=== PATIENT | female | born 1930 | race Caucasian/White ===

== ENCOUNTER 2016-12-09 17:02 | Emergency (ER) | payer MEDICARE, BC ==
[2016-12-09] MEDS ORDERED: Sodium Chloride 0.9% 10 ML Syringe FLUSH PRN (17:30)
[2016-12-09] MEDS ORDERED: Sodium Chloride 0.9% 2.5 ML Syringe FLUSH PRN (17:30)
--- NOTE | 2016-12-09 17:32 | EDM.PDOC ---
ED HISTORY OF PRESENT ILLNESS - General Chief Complaint: Cardiovascular Problem Stated Complaint: HEART COMPLICATIONS Time Seen by Provider: 12/09/16 17:16 - History of Present Illness INITIAL COMMENTS - FREE TEXT/NARRATIVE: HISTORY AND PHYSICAL: History of present illness: The patient is an 86-year-old female who follows at [facility] and has a history of aortic mechanical valve replacement, factor X, hypertension, atrial fibrillation and presents with vague complaints of not feeling like herself, feeling "empty in her head" and having episodic leg paresthesias without weakness. She states that these symptoms started on November 26 after returning from a trip to [place] and has been ongoing since that time. She denies any chest pain or shortness of breath she's had no headaches neck or back pain no frequency or urgency no vomiting or diarrhea and has had normal bowel movements. She's eating and drinking normally and states she drinks at least 6 cups of coffee a day, not as much water. The patient states she's been feeling lightheaded, it has been episodic and she had a fall prior to November 26 but not since that time. She was seen by her provider at [facility], Dr. Anders, who stopped her digoxin 2 days ago and her verapamil one day ago because he felt that her heart rate was significantly affected by these meds. She has a known history of warfarin use, Jantoven, 1 mg per day 6 days a week and half a milligram on Thursday it keeps her INR proximally 1.9-2.1. She had labs performed at [facility] on , 5 days ago, which she was told were normal except that her INR was 2.4. She's had no bleeding in her stools no blood in her urine and no bleeding gums. She says she also had an ultrasound performed on her abdomen to evaluate her AAA which is stable at 3 cm and that was performed 5 days ago as well. Patient is a nontobacco user but says she has cut back significantly from one pack a day to only 5 cigarettes a day because she just doesn't have the desire to smoke. She says she can't really describe her symptoms other than the numbness in the legs and feeling drained lightheaded and empty in her head. She presents today because she doesn't feel like anything is changed and wants reevaluation. The patient does state me that she has been on several different antihypertensive meds and a nurse practitioner at [facility] had stated to her before she went trip that she might have to come off of her blood pressure medicine because her blood pressure was running low. She states that every 2 years she has problems with her blood pressure medications as she is very sensitive and she says it usually feels like the way she is feeling now. This particular history was not addressed by her provider on her last visit Review of systems: As per history of present illness and below otherwise all systems reviewed and negative. Past medical history: As per history of present illness and as reviewed below otherwise noncontributory. Surgical history: As per history of present illness and as reviewed below otherwise noncontributory. Social history: No reported history of drug or alcohol abuse. Family history: As per history of present illness and as reviewed below otherwise noncontributory. Physical exam: General: Well-developed well-nourished thin female who is nontoxic and whose vitals have been reviewed by me. She moves easily in the bed without distress HEENT: Atraumatic, normocephalic, pupils reactive, negative for conjunctival pallor or scleral icterus, mucous membranes tacky, throat clear, neck supple, nontender, trachea midline. Lungs: Clear to auscultation with a course fine expiratory wheeze at end expiration in the bases bilaterally but otherwise no work or breathing or sensory muscle use, breath sounds equal bilaterally, chest nontender. Heart: S1S2, regular rate but your regular rhythm, negative for clicks, rubs, or JVD. Abdomen: Soft, nondistended, nontender. Negative for masses or hepatosplenomegaly. Negative for costovertebral tenderness. Pelvis: Stable nontender. Genitourinary: Deferred. Rectal: Deferred. Extremities: Atraumatic, negative for cords or calf pain. Neurovascular unremarkable. No pedal edema or leg asymmetry Neuro: Awake, alert, oriented. Cranial nerves II through XII unremarkable. Cerebellum unremarkable. Motor and sensory unremarkable throughout. Exam nonfocal. There is no drift any extremities the patient is speaking clearly and easily without distress. Dorsi and plantar flexion is intact bilaterally 5/5 inclusive of the great toe and there are no focal changes in any of this exam Diagnostics: EKG chest x-ray CT scan of the head CBC CMP INR troponin UA urine culture if indicated orthostatic vitals Therapeutics: IV O2 monitor gentle IV fluids Please note that her systolic blood pressure from laying down to sitting did drop more than 20 there is no change in heart rate and then from sitting to standing there was no significant change. Her blood pressure was running on the higher side and this change may be what she is feeling symptomatically. I discussed the testing results with the patient and at bedside at great length. I expressed my concerns about her elevated blood pressure and the changes with position change. I have offered the patient admission to help manage her blood pressure but because she has been working with Dr. Anders she does not want to have a new physician start changing her meds. She understands my concerns and the risk of going home and she accepts those. She will call [facility] tomorrow to follow up with Dr. Anders and have her medications reevaluated and her blood pressure management better controlled. I've advised her to call here and speak with me if she cannot get an appointment there tomorrow and to return here if anything changes or evolves. Impression: Hypertension with poor control, lightheadedness Definitive disposition and diagnosis as appropriate pending reevaluation and review of above. - Related Data Allergies/ADRs: Allergies Allergy/AdvReac Type Severity Reaction Status Date / Time LEVI Inhibitors Allergy Other Verified 12/09/16 17:32 amitriptyline Allergy Cannot Verified 03/03/15 10:59 Remember aspirin Allergy Swelling Verified 03/03/15 10:59 atorvastatin calcium Allergy Cannot Verified 03/03/15 10:59 [From Lipitor] Remember bupropion [From Wellbutrin] Allergy Other Verified 12/09/16 17:32 chlorthalidone Allergy Cannot Verified 03/03/15 10:59 Remember diazepam [From Valium] Allergy Other Verified 12/09/16 17:32 diltiazem [From Cardizem] Allergy Other Verified 12/09/16 17:32 latex Allergy Other Verified 03/03/15 10:59 lisinopril Allergy Other Verified 12/09/16 17:32 losartan Allergy Other Verified 12/09/16 17:32 meclofenamic acid Allergy Cannot Verified 03/03/15 10:59 Remember mold Allergy Other Verified 12/09/16 17:32 nebivolol [From Bystolic] Allergy Other Verified 12/09/16 17:32 niacin Allergy Rash Verified 03/03/15 10:59 nortriptyline Allergy Other Verified 03/03/15 10:59 NSAIDS (Non-Steroidal Allergy Other Verified 12/09/16 17:32 Anti-Inflamma pregabalin [From Lyrica] Allergy Cannot Verified 03/03/15 10:59 Remember strawberry Allergy Other Verified 12/09/16 17:32 vitamin K Allergy Anaphylactic Uncoded 03/03/15 10:59 Shock Home Meds: Home Meds Budesonide/Formoterol [Symbicort 160-4.5 Mcg Inhaler] 2 puff INH BID 03/03/15 [ History] Doxazosin Mesylate [Cardura] 2 mg PO DAILY 03/03/15 [History] Estradiol 0.5 mg PO DAILY 03/03/15 [History] Furosemide 40 mg PO DAILY 03/03/15 [History] Nitroglycerin 6.5 mg PO BID 03/03/15 [History] Irene-3 Fatty Acids [Irene-3] 1,000 mg PO DAILY 03/03/15 [History] Potassium Chloride 10 meq PO BID 03/03/15 [History] Verapamil HCl [Verelan] 240 mg PO BEDTIME 03/03/15 [History] Warfarin Sodium [Jantoven] 1 mg PO DAILY 03/03/15 [History] Digoxin 250 mcg PO DAILY 12/09/16 [History] Digoxin [Digox] 125 mcg PO SUTUTHSA 12/09/16 [History] Ergocalciferol (Vitamin D2) [Vitamin D] 1,000 units PO DAILY 12/09/16 [History] Hydrocodone/Acetaminophen [Hydrocodon-Acetaminophn 10-325] 1 tab PO Q4H [History] Valsartan [Diovan] 320 mg PO DAILY 12/09/16 [History] Past Medical History Other Musculoskeletal History: Degenerative disc disease, hip pain, myofascial pain syndrome, spondylolithesis of lumbar region Other Hematologic History: Factor 10 disorder Social & Family History - Tobacco Use Smoking Status *Q: Current Every Day Smoker Years of Tobacco use: 30 Second Hand Smoke Exposure: No - Recreational Drug Use Recreational Drug Use: No ED ROS GENERAL - Review of Systems Review Of Systems: ROS reveals no pertinent complaints other than HPI. ED EXAM, GENERAL - Physical Exam Exam: See Below (See dictation) Course - Vital Signs Last Recorded V/S: Last Vital Signs Temp 36.9 C 12/09/16 17:23 Pulse 57 L 12/09/16 17:23 Resp 16 12/09/16 17:23 BP 209/92 H 12/09/16 17:23 Pulse Ox 97 12/09/16 17:23 Orthostatic Blood Pressure [ 191/80 Standing] Orthostatic Blood Pressure [ 174/83 Sitting] Orthostatic Blood Pressure [ 203/78 Supine] - Orders/Labs/Meds Orders: Active Orders 24 hr Category Date Time Status Cardiac Monitoring [RC] . DIRECTED Care 12/09/16 17:28 Active EKG Documentation Completion [RC] STAT Care 12/09/16 17:28 Active Orthostatic Vital Signs [RC] ASDIRECTED Care 12/09/16 17:30 Active Oxygen Therapy, ED [RC] ASDIRECTED Care 12/09/16 17:28 Active Pulse Oximetry [RC] ASDIRECTED Care 12/09/16 17:28 Active Chest 1V Frontal [CR] Stat Exams 12/09/16 17:29 Taken Head wo Cont [CT] Stat Exams 12/09/16 17:30 Taken Sodium Chloride 0.9% [Normal Saline] 500 ml Med 12/09/16 17:45 Active IV STAT Sodium Chloride 0.9% [Saline Flush] Med 12/09/16 17:30 Active 10 ml FLUSH ASDIRECTED PRN Sodium Chloride 0.9% [Saline Flush] Med 12/09/16 17:30 Active 2.5 ml FLUSH ASDIRECTED PRN Saline Lock Insert [OM.PC] Stat Oth 12/09/16 17:28 Ordered Medication Orders Sodium Chloride (Normal Saline) 500 mls @ 999 mls/hr IV STAT JILLIAN Last Admin: 12/09/16 17:41 Dose: 999 mls/hr Sodium Chloride (Saline Flush) 10 ml FLUSH ASDIRECTED PRN PRN Reason: Keep Vein Open Sodium Chloride (Saline Flush) 2.5 ml FLUSH ASDIRECTED PRN PRN Reason: Keep Vein Open Labs: Laboratory Tests 12/09/16 12/09/16 12/09/16 Range/Units 17:25 17:25 17:25 WBC 6.80 (4.0-11.0) K/uL RBC 4.34 (4.30-5.90) M/uL Hgb 13.4 (12.0-16.0) g/dL Hct 40.8 (36.0-46.0) % MCV 94.0 (80.0-98.0) fL MCH 30.9 (27.0-32.0) pg MCHC 32.8 (31.0-37.0) g/dL RDW Std Deviation 47.2 (28.0-62.0) fl RDW Coeff of Vy 14 (11.0-15.0) % Plt Count 156 (150-400) K/uL MPV 10.00 (7.40-12.00) fL Neut % (Auto) 61.2 (48.0-80.0) % Lymph % (Auto) 29.1 (16.0-40.0) % [place] % (Auto) 7.4 (0.0-15.0) % Eos % (Auto) 1.9 (0.0-7.0) % Baso % (Auto) 0.4 (0.0-1.5) % Neut # 4.2 (1.4-5.7) K/uL Lymph # 2.0 (0.6-2.4) K/uL [place] # 0.5 (0.0-0.8) K/uL Eos # 0.1 (0.0-0.7) K/uL Baso # 0.0 (0.0-0.1) K/uL Nucleated RBC % 0.0 /100WBC Nucleated RBCs # 0 K/uL INR 2.53 H (0.86-1.11) Sodium 139 (136-146) mmol/L Potassium 4.0 (3.5-5.1) mmol/L Chloride 105 (98-110) mmol/L Carbon Dioxide 24 (21-31) mmol/L BUN 14 (6.0-23.0) mg/dL Creatinine 0.8 (0.6-1.5) mg/dL Est Cr Clr Drug Dosing 41.40 mL/min Estimated GFR (MDRD) > 60.0 ml/min Glucose 91 (60-110) mg/dL Calcium 9.1 (8.8-10.8) mg/dL Total Bilirubin 0.4 (0.1-1.5) mg/dL AST 23 (5-40) IU/L ALT 14 (8-54) IU/L Alkaline Phosphatase 57 (40-150) Troponin I (0.0-0.29) NG/ML Total Protein 7.1 (6.0-8.0) g/dL Albumin 4.0 (3.4-4.8) g/dL Globulin 3.1 (2.0-3.5) g/dL Albumin/Globulin Ratio 1.3 (1.3-2.8) Urine Color Urine Appearance Urine pH (5.0-8.0) Ur Specific [place] (1.001-1.035) Urine Protein (NEGATIVE) mg/dL Urine Glucose (UA) (NEGATIVE) mg/dL Urine Ketones (NEGATIVE) mg/dL Urine Occult Blood (NEGATIVE) Urine Nitrite (NEGATIVE) Urine Bilirubin (NEGATIVE) Urine Urobilinogen (<2.0) EU/dL Ur Leukocyte Esterase (NEGATIVE) Urine RBC (0-2/HPF) Urine WBC (0-5/HPF) Ur Epithelial Cells (NONE-FEW) Urine Bacteria (NEGATIVE) 12/09/16 12/09/16 Range/Units 17:25 17:55 WBC (4.0-11.0) K/uL RBC (4.30-5.90) M/uL Hgb (12.0-16.0) g/dL Hct (36.0-46.0) % MCV (80.0-98.0) fL MCH (27.0-32.0) pg MCHC (31.0-37.0) g/dL RDW Std Deviation (28.0-62.0) fl RDW Coeff of Vy (11.0-15.0) % Plt Count (150-400) K/uL MPV (7.40-12.00) fL Neut % (Auto) (48.0-80.0) % Lymph % (Auto) (16.0-40.0) % [place] % (Auto) (0.0-15.0) % Eos % (Auto) (0.0-7.0) % Baso % (Auto) (0.0-1.5) % Neut # (1.4-5.7) K/uL Lymph # (0.6-2.4) K/uL [place] # (0.0-0.8) K/uL Eos # (0.0-0.7) K/uL Baso # (0.0-0.1) K/uL Nucleated RBC % /100WBC Nucleated RBCs # K/uL INR (0.86-1.11) Sodium (136-146) mmol/L Potassium (3.5-5.1) mmol/L Chloride (98-110) mmol/L Carbon Dioxide (21-31) mmol/L BUN (6.0-23.0) mg/dL Creatinine (0.6-1.5) mg/dL Est Cr Clr Drug Dosing mL/min Estimated GFR (MDRD) ml/min Glucose (60-110) mg/dL Calcium (8.8-10.8) mg/dL Total Bilirubin (0.1-1.5) mg/dL AST (5-40) IU/L ALT (8-54) IU/L Alkaline Phosphatase (40-150) Troponin I < 0.10 (0.0-0.29) NG/ML Total Protein (6.0-8.0) g/dL Albumin (3.4-4.8) g/dL Globulin (2.0-3.5) g/dL Albumin/Globulin Ratio (1.3-2.8) Urine Color YELLOW Urine Appearance CLEAR Urine pH 7.0 (5.0-8.0) Ur Specific [place] <= 1.005 (1.001-1.035) Urine Protein NEGATIVE (NEGATIVE) mg/dL Urine Glucose (UA) NEGATIVE (NEGATIVE) mg/dL Urine Ketones NEGATIVE (NEGATIVE) mg/dL Urine Occult Blood NEGATIVE (NEGATIVE) Urine Nitrite NEGATIVE (NEGATIVE) Urine Bilirubin NEGATIVE (NEGATIVE) Urine Urobilinogen 0.2 (<2.0) EU/dL Ur Leukocyte Esterase NEGATIVE (NEGATIVE) Urine RBC 0-1 (0-2/HPF) Urine WBC 0-1 (0-5/HPF) Ur Epithelial Cells FEW (NONE-FEW) Urine Bacteria FEW (NEGATIVE) Meds: Medications Generic Name Dose Route Start Last Admin Trade Name Freq PRN Reason Stop Dose Admin Sodium Chloride 500 mls @ 999 mls/hr 12/09/16 17:45 12/09/16 17:41 Normal Saline IV 999 mls/hr STAT JILLIAN Administration Sodium Chloride 10 ml 12/09/16 17:30 Saline Flush FLUSH ASDIRECTED PRN Keep Vein Open Sodium Chloride 2.5 ml 12/09/16 17:30 Saline Flush FLUSH ASDIRECTED PRN Keep Vein Open Departure - Departure Time of Disposition: 19:04 Disposition: Home, Self-Care 01 Condition: good Clinical Impression: Poorly-controlled hypertension Forms: ED Department Discharge Additional Instructions: The following information is given to patients seen in the emergency department who are being discharged to home. This information is to outline your options for follow-up care. We provide all patients seen in our emergency department with a follow-up referral. The need for follow-up, as well as the timing and circumstances, are variable depending upon the specifics of your emergency department visit. If you don't have a primary care physician on staff, we will provide you with a referral. We always advise you to contact your personal physician following an emergency department visit to inform them of the circumstance of the visit and for follow-up with them and/or the need for any referrals to a consulting specialist. The emergency department will also refer you to a specialist when appropriate. This referral assures that you have the opportunity for followup care with a specialist. All of these measure are taken in an effort to provide you with optimal care, which includes your followup. Under all circumstances we always encourage you to contact your private physician who remains a resource for coordinating your care. When calling for followup care, please make the office aware that this follow-up is from your recent emergency room visit. If for any reason you are refused follow-up, please contact the [facility] emergency department at and ask to speak to the emergency department charge nurse. [address] [place] [address] Please call [facility] tomorrow to get an appointment with Dr. Anders as we discussed. If you have any trouble getting an appointment with him please call the ER at [phone] with Dr. Spicer who will expedite getting an appointment. Please take your medications as prescribed at home but please hold her Coumadin dose tonight. Please have Dr. Anders recheck your INR tomorrow or . Please return to ER as needed and as we discussed - My Orders Last 24 Hours: My Active Orders 12/09/16 17:28 Cardiac Monitoring [RC] . DIRECTED EKG Documentation Completion [RC] STAT Oxygen Therapy, ED [RC] ASDIRECTED Pulse Oximetry [RC] ASDIRECTED Saline Lock Insert [OM.PC] Stat 12/09/16 17:29 Chest 1V Frontal [CR] Stat 12/09/16 17:30 Orthostatic Vital Signs [RC] ASDIRECTED Head wo Cont [CT] Stat Sodium Chloride 0.9% [Saline Flush] 10 ml FLUSH ASDIRECTED PRN Sodium Chloride 0.9% [Saline Flush] 2.5 ml FLUSH ASDIRECTED PRN 12/09/16 17:45 Sodium Chloride 0.9% [Normal Saline] 500 ml IV STAT - Assessment/Plan Last 24 Hours: My Active Orders 12/09/16 17:28 Cardiac Monitoring [RC] . DIRECTED EKG Documentation Completion [RC] STAT Oxygen Therapy, ED [RC] ASDIRECTED Pulse Oximetry [RC] ASDIRECTED Saline Lock Insert [OM.PC] Stat 12/09/16 17:29 Chest 1V Frontal [CR] Stat 12/09/16 17:30 Orthostatic Vital Signs [RC] ASDIRECTED Head wo Cont [CT] Stat Sodium Chloride 0.9% [Saline Flush] 10 ml FLUSH ASDIRECTED PRN Sodium Chloride 0.9% [Saline Flush] 2.5 ml FLUSH ASDIRECTED PRN 12/09/16 17:45 Sodium Chloride 0.9% [Normal Saline] 500 ml IV STAT
[2016-12-09] MEDS ORDERED: Sodium Chloride 0.9% 500 ML IV SCH (17:45)
[2016-12-09 18:06] LABS: CHLORIDE,CL 105 mmol/L (98-110); SODIUM,NA 139 mmol/L (136-146)
[2016-12-09 19:27] VITALS: BP 180/90
--- NOTE | 2016-12-10 14:43 | CR ---
EXAM DATE: 12/09/16 PATIENT'S AGE: 86 Patient: RODGER DURANT Facility: [place], [place] Site . Site : 1932 Study: XRay Chest [id number]/21/2017 6:10:44 PM Ordering Physician: Nayan Del Rosario Final Report: INDICATION: Dizziness and weakness TECHNIQUE: Chest 1 view. COMPARISON: None FINDINGS: Cardiovascular and mediastinum: Heart size and vasculature are normal in caliber and appearance. Sternotomy wires noted. Mediastinum is within normal limits. Lungs and pleural space: Lungs are clear. No sign of infiltrate or mass. No sign of pleural effusion. No pneumothorax. Bones and soft tissues: No significant findings. IMPRESSION: Unremarkable chest. Dictated by Wilmer Jones MD @ 12/09/2016 6:37:01 PM Dictated by: Wilmer Jones MD @ 12/09/2016 18:37:06 (Electronic Signature) Report Signed by Proxy and Original Signed Document filed in the Medical Record. [facility]TDD
--- NOTE | 2016-12-10 14:43 | CT ---
EXAM DATE: 12/09/16 PATIENT'S AGE: 86 Patient: RODGER DURANT Facility: [place], [place] Site . Site : 1932 Study: CT Head [id number]/21/[id number] 6:11:42 PM Ordering Physician: Nayan Del Rosario Final Report: INDICATION: weakness, blurred vision, dizziness TECHNIQUE: CT Head without contrast. COMPARISON: 10/12/2014. FINDINGS: There is no sign of intracranial hemorrhage or mass effect. Stable diffuse cerebral atrophy. Stable nonspecific low-attenuation along the periventricular white matter, most likely related to chronic microvascular disease. Stable nonspecific calcification within the right parietal lobe. The estevez-white differentiation is preserved. No abnormal intra-axial or extra-axial fluid collection. No acute disease of the visualized paranasal sinuses and mastoid air cells. No fracture evident. No scalp hematoma/laceration. IMPRESSION: No acute intracranial process. Dictated by: Juan Cook MD @ 12/09/2016 18:41:54 (Electronic Signature) Report Signed by Proxy and Original Signed Document filed in the Medical Record. [facility]
== END 2016-12-09 19:15 | disposition home or self-care (01) ==
LOC: MW.ED 17:02
DX: I10 Essential (primary) hypertension (principal); F17.210 Nicotine dependence, cigarettes, uncomplicated; Z79.01 Long term (current) use of anticoagulants; Z79.899 Other long term (current) drug therapy; Z88.8 Allergy status to other drugs, medicaments and biological substances
CPT/HCPCS: 36415; 70450; 71010; 80053; 81001; 84484; 85025; 85610; 93005; 96360; 99285; J7040; 99284

== ENCOUNTER → 2017-01-29 | Outpatient (CLI) | payer MEDICARE, BC ==
--- NOTE | 2017-01-29 15:11 | US ---
EXAMINATION: Renal artery and renal artery duplex ultrasound HISTORY: Heart failure COMPARISON: None TECHNIQUE: Grayscale, color Doppler, spectral Doppler images obtained of the kidneys and the renal a rteries bilaterally. FINDINGS: The right kidney measures at least 11.1 cm and the left kidney measures at least 9.1 cm [id number] without evidence hydronephrosis. The renal cortical echotexture appears normal. No renal mass or pe rinephric fluid collection or no shadowing stones. Normal color Doppler flow bilaterally. The aorta is moderately ectatic up to 3.9 cm. Velocities within the aorta measures 88 cm/s. The proximal, mid, and distal right renal artery veloc ities are 130, 79, and 59 cm/s respectively. Velocities within the proximal, mid, and distal left re nal arteries are 162, 112, and 57 cm/s respectively. The heart rate is irregular. IMPRESSION: 1. No elevated velocities within the renal arteries to suggest significant underlying stenosis. 2. Abdominal aortic aneurysm measuring up to 3.9 cm. 3. Irregular heart rate.
--- NOTE | 2017-01-29 15:11 | US ---
EXAMINATION: Renal artery and renal artery duplex ultrasound HISTORY: Heart failure COMPARISON: None TECHNIQUE: Grayscale, color Doppler, spectral Doppler images obtained of the kidneys and the renal a rteries bilaterally. FINDINGS: The right kidney measures at least 11.1 cm and the left kidney measures at least 9.1 cm [id number] without evidence hydronephrosis. The renal cortical echotexture appears normal. No renal mass or pe rinephric fluid collection or no shadowing stones. Normal color Doppler flow bilaterally. The aorta is moderately ectatic up to 3.9 cm. Velocities within the aorta measures 88 cm/s. The proximal, mid, and distal right renal artery veloc ities are 130, 79, and 59 cm/s respectively. Velocities within the proximal, mid, and distal left re nal arteries are 162, 112, and 57 cm/s respectively. The heart rate is irregular. IMPRESSION: 1. No elevated velocities within the renal arteries to suggest significant underlying stenosis. 2. Abdominal aortic aneurysm measuring up to 3.9 cm. 3. Irregular heart rate.
== END ==
LOC: MW.US 10:23
PROVIDERS: ATTEND Internal Medicine
DX: I50.9 Heart failure, unspecified (principal); I71.4 Abdominal aortic aneurysm, without rupture; I49.9 Cardiac arrhythmia, unspecified
CPT/HCPCS: 76775; 76775-26; 93975; 93975-26

== ENCOUNTER 2017-03-07 17:50 | Observation (INO) | payer MEDICARE, BC ==
[2017-03-07] MEDS ORDERED: Aspirin 81 MG Tab.Chew PO ONE (18:00)
[2017-03-07] MEDS ORDERED: Sodium Chloride 0.9% 1,000 ML IV SCH (18:00)
[2017-03-07] MEDS ORDERED: Albuterol/Ipratropium 3.0-0.5 MG/3 ML Neb Soln NEB ONE (18:02)
--- NOTE | 2017-03-07 18:02 | EDM.PDOC ---
ED HPI GENERAL MEDICAL PROBLEM - General Chief Complaint: Chest Pain Stated Complaint: DIFFICULTY BREATHING Time Seen by Provider: 03/07/17 18:01 Source of Information: Reports: Patient - History of Present Illness INITIAL COMMENTS - FREE TEXT/NARRATIVE: HISTORY AND PHYSICAL: History of present illness: [] Patient presents by private vehicle as above Patient has history of COPD and aortic valve replacement presents with chest heaviness and shortness of breath not associated with diaphoresis she rates heaviness on her chest 3 out of 10 she is in no distress at this time no fever nausea vomiting chills sweats Review of systems: As per history of present illness and below otherwise all systems reviewed and negative. Past medical history: As per history of present illness and as reviewed below otherwise noncontributory. Surgical history: As per history of present illness and as reviewed below otherwise noncontributory. Social history: No reported history of drug or alcohol abuse. Family history: As per history of present illness and as reviewed below otherwise noncontributory. Physical exam: HEENT: Atraumatic, normocephalic, pupils reactive, negative for conjunctival pallor or scleral icterus, mucous membranes moist, throat clear, neck supple, nontender, trachea midline. Lungs: Clear to auscultation, breath sounds equal bilaterally, chest nontender. Heart: S1S2, regular, negative for clicks, rubs, or JVD. Abdomen: Soft, nondistended, nontender. Negative for masses or hepatosplenomegaly. Negative for costovertebral tenderness. Pelvis: Stable nontender. Genitourinary: Deferred. Rectal: Deferred. Extremities: Atraumatic, negative for cords or calf pain. Neurovascular unremarkable. Neuro: Awake, alert, oriented. Cranial nerves II through XII unremarkable. Cerebellum unremarkable. Motor and sensory unremarkable throughout. Exam nonfocal. Diagnostics: []Lab as below EKG Chest 1 view Therapeutics: []Normal saline 1 25 mL per hour Aspirin 324 mg chewable, considered but held due to allergy ntg 0.4mg sl Impression: []Atypical chest pain COPD exacerbation Chronic history of baseline Definitive disposition and diagnosis as appropriate pending reevaluation and review of above. chest area Pain Score (Numeric/FACES): 5 - Related Data Allergies Allergy/AdvReac Type Severity Reaction Status Date / Time LEVI Inhibitors Allergy Other Verified 03/07/17 18:01 amitriptyline Allergy Cannot Verified 03/07/17 18:01 Remember aspirin Allergy Swelling Verified 03/07/17 18:01 atorvastatin calcium Allergy Cannot Verified 03/07/17 18:01 [From Lipitor] Remember bupropion [From Wellbutrin] Allergy Other Verified 03/07/17 18:01 chlorthalidone Allergy Cannot Verified 03/07/17 18:01 Remember diazepam [From Valium] Allergy Other Verified 03/07/17 18:01 diltiazem [From Cardizem] Allergy Other Verified 03/07/17 18:01 latex Allergy Other Verified 03/07/17 18:01 lisinopril Allergy Other Verified 03/07/17 18:01 losartan Allergy Other Verified 03/07/17 18:01 meclofenamic acid Allergy Cannot Verified 03/07/17 18:01 Remember mold Allergy Other Verified 03/07/17 18:01 nebivolol [From Bystolic] Allergy Other Verified 03/07/17 18:01 niacin Allergy Rash Verified 03/07/17 18:01 nortriptyline Allergy Other Verified 03/07/17 18:01 NSAIDS (Non-Steroidal Allergy Other Verified 03/07/17 18:01 Anti-Inflamma pregabalin [From Lyrica] Allergy Cannot Verified 03/07/17 18:01 Remember strawberry Allergy Other Verified 03/07/17 18:01 vitamin K Allergy Anaphylactic Uncoded 03/07/17 18:01 Shock Home Meds: Home Meds Budesonide/Formoterol [Symbicort 160-4.5 Mcg Inhaler] 2 puff INH BID 03/03/15 [ History] Doxazosin Mesylate [Cardura] 8 mg PO DAILY 03/03/15 [History] Estradiol 0.5 mg PO DAILY 03/03/15 [History] Furosemide 40 mg PO DAILY 03/03/15 [History] Nitroglycerin 6.5 mg PO BID 03/03/15 [History] [place]-3 Fatty Acids [[place]-3] 1,000 mg PO DAILY 03/03/15 [History] Potassium Chloride 10 meq PO BID 03/03/15 [History] Verapamil HCl [Verelan] 240 mg PO BEDTIME 03/03/15 [History] Warfarin Sodium [Jantoven] 1 mg PO DAILY 03/03/15 [History] Digoxin 250 mcg PO DAILY 12/09/16 [History] Ergocalciferol (Vitamin D2) [Vitamin D] 1,000 units PO DAILY 12/09/16 [History] Hydrocodone/Acetaminophen [Hydrocodon-Acetaminophn 10-325] 1 tab PO Q4H [History] Valsartan [Diovan] 320 mg PO DAILY 12/09/16 [History] Fexofenadine [Malina] 180 mg PO DAILY 03/07/17 [History] hydrALAZINE [Apresoline] 10 mg PO TID 03/07/17 [History] Past Medical History Cardiovascular History: Reports: Afib, Aneurysm, Heart Valve Replacement, Hypertension, Other (See Below) Other Cardiovascular History: AAA Respiratory History: Reports: Asthma Other Musculoskeletal History: Degenerative disc disease, hip pain, myofascial pain syndrome, 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 ED EXAM, GENERAL - Physical Exam Exam: See Below Course - Vital Signs Last Recorded V/S: Last Vital Signs Temp 36.5 C 03/07/17 18:01 Pulse 76 03/07/17 18:01 Resp 18 03/07/17 18:01 BP 189/99 H 03/07/17 18:21 Pulse Ox 97 03/07/17 18:01 - Orders/Labs/Meds Orders: Active Orders 24 hr Category Date Time Status EKG 12 Lead [EKG Documentation Completion] [RC] STAT Care 03/07/17 18:00 Active RT Aerosol Therapy [RC] ASDIRECTED Care 03/07/17 18:02 Active Chest 1V Frontal [CR] Stat Exams 03/07/17 18:00 Taken Sodium Chloride 0.9% [Normal Saline] 1,000 ml Med 03/07/17 18:00 Active IV STAT Medication Orders Sodium Chloride (Normal Saline) 1,000 mls @ 125 mls/hr IV STAT JILLIAN Last Admin: 03/07/17 18:16 Dose: 125 mls/hr Labs: Laboratory Tests 03/07/17 03/07/17 03/07/17 Range/Units 18:00 18:00 18:00 WBC 7.04 (4.0-11.0) K/uL RBC 4.23 L (4.30-5.90) M/uL Hgb 13.4 (12.0-16.0) g/dL Hct 40.3 (36.0-46.0) % MCV 95.3 (80.0-98.0) fL MCH 31.7 (27.0-32.0) pg MCHC 33.3 (31.0-37.0) g/dL RDW Std Deviation 49.3 (28.0-62.0) fl RDW Coeff of Vy 14 (11.0-15.0) % Plt Count 164 (150-400) K/uL MPV 10.00 (7.40-12.00) fL Neut % (Auto) 55.5 (48.0-80.0) % Lymph % (Auto) 31.8 (16.0-40.0) % [place] % (Auto) 9.5 (0.0-15.0) % Eos % (Auto) 2.8 (0.0-7.0) % Baso % (Auto) 0.4 (0.0-1.5) % Neut # (Auto) 3.9 (1.4-5.7) K/uL Lymph # (Auto) 2.2 (0.6-2.4) K/uL [place] # (Auto) 0.7 (0.0-0.8) K/uL Eos # (Auto) 0.2 (0.0-0.7) K/uL Baso # (Auto) 0.0 (0.0-0.1) K/uL Nucleated RBC % 0.0 /100WBC Nucleated RBCs # 0 K/uL INR (0.86-1.11) Sodium 138 (136-146) mmol/L Potassium 4.0 (3.5-5.1) mmol/L Chloride 104 (98-110) mmol/L Carbon Dioxide 24 (21-31) mmol/L BUN 14 (6.0-23.0) mg/dL Creatinine 0.9 (0.6-1.5) mg/dL Est Cr Clr Drug Dosing 36.80 mL/min Estimated GFR (MDRD) 59.7 ml/min Glucose 94 (60-110) mg/dL Calcium 9.0 (8.8-10.8) mg/dL Total Bilirubin 0.3 (0.1-1.5) mg/dL AST 16 (5-40) IU/L ALT 12 (8-54) IU/L Alkaline Phosphatase 59 (40-150) Troponin I < 0.10 (0.0-0.29) NG/ML B-Natriuretic Peptide (<100) PG/ML Total Protein 7.1 (6.0-8.0) g/dL Albumin 4.2 (3.4-4.8) g/dL Globulin 2.9 (2.0-3.5) g/dL Albumin/Globulin Ratio 1.4 (1.3-2.8) 03/07/17 03/07/17 Range/Units 18:00 18:00 WBC (4.0-11.0) K/uL RBC (4.30-5.90) M/uL Hgb (12.0-16.0) g/dL Hct (36.0-46.0) % MCV (80.0-98.0) fL MCH (27.0-32.0) pg MCHC (31.0-37.0) g/dL RDW Std Deviation (28.0-62.0) fl RDW Coeff of Vy (11.0-15.0) % Plt Count (150-400) K/uL MPV (7.40-12.00) fL Neut % (Auto) (48.0-80.0) % Lymph % (Auto) (16.0-40.0) % [place] % (Auto) (0.0-15.0) % Eos % (Auto) (0.0-7.0) % Baso % (Auto) (0.0-1.5) % Neut # (Auto) (1.4-5.7) K/uL Lymph # (Auto) (0.6-2.4) K/uL [place] # (Auto) (0.0-0.8) K/uL Eos # (Auto) (0.0-0.7) K/uL Baso # (Auto) (0.0-0.1) K/uL Nucleated RBC % /100WBC Nucleated RBCs # K/uL INR 2.34 H (0.86-1.11) Sodium (136-146) mmol/L Potassium (3.5-5.1) mmol/L Chloride (98-110) mmol/L Carbon Dioxide (21-31) mmol/L BUN (6.0-23.0) mg/dL Creatinine (0.6-1.5) mg/dL Est Cr Clr Drug Dosing mL/min Estimated GFR (MDRD) ml/min Glucose (60-110) mg/dL Calcium (8.8-10.8) mg/dL Total Bilirubin (0.1-1.5) mg/dL AST (5-40) IU/L ALT (8-54) IU/L Alkaline Phosphatase (40-150) Troponin I (0.0-0.29) NG/ML B-Natriuretic Peptide 249 H (<100) PG/ML Total Protein (6.0-8.0) g/dL Albumin (3.4-4.8) g/dL Globulin (2.0-3.5) g/dL Albumin/Globulin Ratio (1.3-2.8) Meds: Medications Generic Name Dose Route Start Last Admin Trade Name Freq PRN Reason Stop Dose Admin Sodium Chloride 1,000 mls @ 125 mls/hr 03/07/17 18:00 03/07/17 18:16 Normal Saline IV 125 mls/hr STAT JILLIAN Administration Discontinued Medications Generic Name Dose Route Start Last Admin Trade Name Freq PRN Reason Stop Dose Admin Albuterol/Ipratropium 3 ml 03/07/17 18:02 03/07/17 18:20 Duoneb 3.0-0.5 Mg/3 Ml NEB 03/07/17 18:03 3 ml ONETIME ONE Administration Aspirin 324 mg 03/07/17 18:00 03/07/17 18:11 Aspirin PO 03/07/17 18:01 Not Given ONETIME ONE Methylprednisolone Sodium Succinate 125 mg 03/07/17 18:05 03/07/17 18:16 Solu-Medrol IVPUSH 03/07/17 18:06 125 mg ONETIME ONE Administration Nitroglycerin 0.4 mg 03/07/17 18:09 03/07/17 18:21 Nitrostat SL 03/07/17 18:10 0.4 mg ONETIME ONE Administration Departure - Departure Time of Disposition: 18:42 Disposition: Admitted As Inpatient 68 Condition: Fair, Poor Clinical Impression: Atypical chest pain, COPD (chronic obstructive pulmonary disease) - Discharge Information Forms: ED Department Discharge - My Orders Last 24 Hours: My Active Orders 03/07/17 18:00 EKG 12 Lead [EKG Documentation Completion] [RC] STAT Chest 1V Frontal [CR] Stat Sodium Chloride 0.9% [Normal Saline] 1,000 ml IV STAT 03/07/17 18:02 RT Aerosol Therapy [RC] ASDIRECTED - Assessment/Plan Last 24 Hours: My Active Orders 03/07/17 18:00 EKG 12 Lead [EKG Documentation Completion] [RC] STAT Chest 1V Frontal [CR] Stat Sodium Chloride 0.9% [Normal Saline] 1,000 ml IV STAT 03/07/17 18:02 RT Aerosol Therapy [RC] ASDIRECTED
[2017-03-07] MEDS ORDERED: methylPREDNISolone Sodium Succinate 125 MG/2 ML SDV IVPUSH ONE (18:05)
[2017-03-07] MEDS ORDERED: Nitroglycerin 0.4 MG Tab.SL SL ONE (18:09)
[2017-03-07] MEDS ORDERED: cloNIDine 0.1 MG Tab PO ONE (20:38)
[2017-03-07] MEDS ORDERED: Albuterol/Ipratropium 3.0-0.5 MG/3 ML Neb Soln NEB PRN (20:38)
[2017-03-07] MEDS ORDERED: Morphine 2 MG/ML Syringe IVPUSH PRN (20:38)
[2017-03-07] MEDS ORDERED: Verapamil 240 MG Tab.ER PO SCH (22:16)
--- NOTE | 2017-03-07 22:44 | PCM.HP ---
H&P History of Present Illness - General Admit Problem/Dx: Admission Diagnosis/Problem Admission Diagnosis/Problem Atypical chest pain - History of Present Illness Initial Comments - Free Text/Narative: 86 yo female with pmh of CHF, and valvular disease who reports generalized weakness and fatigue for a year. She reports mild chest pressure and shortness of breath today. chest area Pain Score (Numeric/FACES): 2 - Related Data Allergies/Adverse Reactions: Allergies Allergy/AdvReac Type Severity Reaction Status Date / Time LEVI Inhibitors Allergy Other Verified 03/07/17 18:01 amitriptyline Allergy Cannot Verified 03/07/17 18:01 Remember aspirin Allergy Swelling Verified 03/07/17 18:01 atorvastatin calcium Allergy Cannot Verified 03/07/17 18:01 [From Lipitor] Remember bupropion [From Wellbutrin] Allergy Other Verified 03/07/17 18:01 chlorthalidone Allergy Cannot Verified 03/07/17 18:01 Remember diazepam [From Valium] Allergy Other Verified 03/07/17 18:01 diltiazem [From Cardizem] Allergy Other Verified 03/07/17 18:01 latex Allergy Other Verified 03/07/17 18:01 lisinopril Allergy Other Verified 03/07/17 18:01 losartan Allergy Other Verified 03/07/17 18:01 meclofenamic acid Allergy Cannot Verified 03/07/17 18:01 Remember mold Allergy Other Verified 03/07/17 18:01 nebivolol [From Bystolic] Allergy Other Verified 03/07/17 18:01 niacin Allergy Rash Verified 03/07/17 18:01 nortriptyline Allergy Other Verified 03/07/17 18:01 NSAIDS (Non-Steroidal Allergy Other Verified 03/07/17 18:01 Anti-Inflamma pregabalin [From Lyrica] Allergy Cannot Verified 03/07/17 18:01 Remember strawberry Allergy Other Verified 03/07/17 18:01 vitamin K Allergy Anaphylactic Uncoded 03/07/17 18:01 Shock Home Medications: Home Meds Budesonide/Formoterol [Symbicort 160-4.5 Mcg Inhaler] 2 puff INH BID 03/03/15 [ History] Doxazosin Mesylate [Cardura] 8 mg PO DAILY 03/03/15 [History] Estradiol 0.5 mg PO DAILY 03/03/15 [History] Furosemide 40 mg PO DAILY 03/03/15 [History] Nitroglycerin 6.5 mg PO BID 03/03/15 [History] [place]-3 Fatty Acids [[place]-3] 1,000 mg PO DAILY 03/03/15 [History] Potassium Chloride 10 meq PO BID 03/03/15 [History] Verapamil HCl [Verelan] 240 mg PO BEDTIME 03/03/15 [History] Warfarin Sodium [Jantoven] 1 mg PO DAILY 03/03/15 [History] Digoxin 250 mcg PO DAILY 12/09/16 [History] Ergocalciferol (Vitamin D2) [Vitamin D] 1,000 units PO DAILY 12/09/16 [History] Hydrocodone/Acetaminophen [Hydrocodon-Acetaminophn 10-325] 1 tab PO Q4H [History] Valsartan [Diovan] 320 mg PO DAILY 12/09/16 [History] Fexofenadine [Malina] 180 mg PO DAILY 03/07/17 [History] Hydrocodone/Acetaminophen [Hydrocodon-Acetaminophn 10-325] 10 mg PO Q4HR PRN [History] Meclizine [Antivert] 25 mg PO TID PRN MDD pain 03/07/17 [History] hydrALAZINE [Apresoline] 25 mg PO TID 03/07/17 [History] Past Medical History Cardiovascular History: Reports: Afib, Aneurysm, Heart Valve Replacement, Hypertension, Other (See Below) Other Cardiovascular History: AAA Respiratory History: Reports: Asthma Other Respiratory History: COPD impression from previous visit Gastrointestinal History: Reports: Other (See Below) Other Gastrointestinal History: Abdominal Aneurysm Genitourinary History: Reports: None [employer]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 Musculoskeletal History: Degenerative disc disease, hip pain, myofascial pain syndrome, spondylolithesis of lumbar region Neurological History: Reports: None Psychiatric History: Reports: None Endocrine/Metabolic History: Reports: None Hematologic History: Reports: Other (See Below) Other Hematologic History: Factor 10 disorder Immunologic History: Reports: None Oncologic (Cancer) History: Reports: None Dermatologic History: Reports: None - Infectious Disease History Infectious Disease History: Reports: Chicken Pox, Measles, Mumps, Shingles - Past Surgical History Female Surgical History: Reports: Hysterectomy Social & Family History - Family History Family Medical History: Noncontributory - Tobacco Use Smoking Status *Q: Current Every Day Smoker Years of Tobacco use: 40 Packs/Tins Daily: 1 Used Tobacco, but Quit: No Second Hand Smoke Exposure: No - Caffeine Use Caffeine Use: Reports: Coffee - Recreational Drug Use Recreational Drug Use: No H&P Review of Systems - Review of Systems: Review Of Systems: ROS reveals no pertinent complaints other than HPI. Exam - Exam Exam: See Below - Vital Signs Vital Signs: Last Vital Signs Temp 36.4 C 03/07/17 19:26 Pulse 68 03/07/17 20:08 Resp 16 03/07/17 20:08 BP 167/74 H 03/07/17 20:57 Pulse Ox 97 03/07/17 20:08 Weight: 50.6 kg - Exam General: Alert, Oriented, 4 Neck: No: JVD Lungs: Clear to Auscultation, Normal Respiratory Effort Cardiovascular: Regular Rate, Regular Rhythm, Systolic Murmur Extremities: Normal Inspection. No: Edema Skin: Warm, Dry, Intact - Patient Data Result Diagrams: 03/07/17 18:00 03/07/17 18:00 *Q Meaningful Use (ADM) - VTE *Q VTE Criteria *Q: - Stroke *Q Stroke Criteria *Q: - AMI *Q AMI Criteria *Q: Problem List Initiated/Reviewed/Updated: Yes Orders Last 24hrs: Active Orders 24 hr Category Date Time Status RT Aerosol Therapy [RC] ASDIRECTED Care 03/07/17 20:38 Active Telemetry Monitoring [Cardiac Monitoring] [RC] . Care 03/07/17 20:40 Active DIRECTED Heart Healthy Diet [DIET] Diet 03/07/17 Dinner Active TROPONIN I [CHEM] Q6H Lab 03/08/17 00:00 Ordered TROPONIN I [CHEM] Q6H Lab 03/08/17 06:00 Ordered Albuterol/Ipratropium [DuoNeb 3.0-0.5 MG/3 ML] Med 03/07/17 20:38 Active 3 ml NEB Q6HRRT PRN Budesonide/Formoterol Med 03/08/17 09:00 Active 2 puff INH BID Digoxin [Lanoxin] Med 03/08/17 09:00 Active 250 mcg PO DAILY Doxazosin [Cardura] Med 03/08/17 09:00 Active 8 mg PO DAILY Furosemide [Lasix] Med 03/08/17 09:00 Active 40 mg PO DAILY Morphine Med 03/07/17 20:38 Active 2 mg IVPUSH Q2H PRN Potassium Chloride [Klor-Con 10] Med 03/08/17 08:00 Active 10 meq PO BIDMEALS Valsartan [Diovan] Med 03/08/17 09:00 Active 320 mg PO DAILY Verapamil [Calan SR] Med 03/07/17 22:16 Active 240 mg PO BEDTIME Warfarin Sliding Scale [Coumadin Sliding Scale] Med 03/08/17 09:00 Pending DOSE each PO DAILY hydrALAZINE [Apresoline] Med 03/07/17 23:00 Active 10 mg PO TID Medication Orders Albuterol/Ipratropium (Duoneb 3.0-0.5 Mg/3 Ml) 3 ml NEB Q6HRRT PRN PRN Reason: Shortness of Breath Digoxin (Lanoxin) 250 mcg PO DAILY JILLIAN Doxazosin Mesylate (Cardura) 8 mg PO DAILY JILLIAN Furosemide (Lasix) 40 mg PO DAILY JILLIAN Hydralazine HCl (Apresoline) 10 mg PO TID JILLIAN Sodium Chloride (Normal Saline) 1,000 mls @ 125 mls/hr IV STAT JILLIAN Last Admin: 03/07/17 18:16 Dose: 125 mls/hr Morphine Sulfate (Morphine) 2 mg IVPUSH Q2H PRN PRN Reason: Pain Non-Formulary Medication (Budesonide/Formoterol) 2 puff INH BID JILLIAN Potassium Chloride (Klor-Con 10) 10 meq PO BIDMEALS JILLIAN Valsartan (Diovan) 320 mg PO DAILY JILLIAN Verapamil HCl (Calan Sr) 240 mg PO BEDTIME JILLIAN Warfarin Sodium (Coumadin Sliding Scale) each PO DAILY [facility] Assessment/Plan Comment:: 86 yo female who presents with chest pain. She was rule out for acute coronary syndrome with serial negative cardiac enyzmes. She was monitored overnight with no events on telemetry and no reoccurrence of chest pressure. She was discharged home and will follow up with Dr. Beth and Dr. Ibrahim.
[2017-03-07] MEDS ORDERED: hydrALAZINE 10 MG Tab PO SCH ×2 (23:00)
[2017-03-07] MEDS ORDERED: hydrALAZINE 25 MG Tab**PTOM PO SCH (23:17)
[2017-03-08] MEDS: HYDROCODONE PO PRN ×2 (00:12→05:22)
[2017-03-08] MEDS: ACETAMINOPHEN PO PRN ×2 (00:12→05:22)
[2017-03-08] MEDS ORDERED: Sodium Chloride 0.9% 2.5 ML Syringe FLUSH PRN (02:32)
[2017-03-08] MEDS ORDERED: Sodium Chloride 0.9% 10 ML Syringe FLUSH PRN (02:32)
[2017-03-08] MEDS ORDERED: hydrALAZINE 10 MG Tab PO SCH (06:00)
[2017-03-08] MEDS ORDERED: Potassium Chloride 10 MEQ Tab.ER PO SCH (08:00)
[2017-03-08 08:29] VITALS: BP 132/45
[2017-03-08] MEDS ORDERED: Furosemide 40 MG Tab PO SCH (09:00)
[2017-03-08] MEDS ORDERED: Digoxin 250 MCG Tab PO SCH (09:00)
[2017-03-08] MEDS ORDERED: Non-Formulary Medication 1 Each (Budesonide/Formoterol 2 PUFF) INH SCH (09:00)
[2017-03-08] MEDS ORDERED: Doxazosin 2 MG Tab PO SCH (09:00)
[2017-03-08] MEDS ORDERED: Warfarin Sliding Scale PO SCH (14:00)
[2017-03-08] MEDS ORDERED: Verapamil 240 MG Tab.ER PO SCH (21:00)
--- NOTE | 2017-03-09 13:04 | CR ---
EXAM DATE: 03/07/17 PATIENT'S AGE: 86 Patient: RODGER DURANT Facility: [place], [place] Site . Site : [id number] Study: XRay Chest [id number] 6:28:22 PM Ordering Physician: Doctor William Final Report: Indication: Pain. Comparison: PA chest 12/09/2016. Findings: Allowing for differences in technique, cardiac mediastinal silhouettes are stable in appearance. Again are changes of a median sternotomy. The lungs are free of infiltrate. The pulmonary vasculature is normal. Impression: No active cardiopulmonary disease on portable chest. Dictated by Valentina Florence MD @ Mar 07 2017 6:44PM (Electronic Signature) Report Signed by Proxy. ALVAREZ
== END 2017-03-08 09:45 | disposition home or self-care (01) ==
LOC: MW.ED 17:50 → MW.MS 18:43
PROVIDERS: ADMIT Internal Medicine; ATTEND Internal Medicine
DX: R07.89 Other chest pain (principal); R53.1 Weakness; R53.83 Other fatigue; I48.91 Unspecified atrial fibrillation; I10 Essential (primary) hypertension; J44.9 Chronic obstructive pulmonary disease, unspecified; R06.02 Shortness of breath; M19.90 Unspecified osteoarthritis, unspecified site; F17.210 Nicotine dependence, cigarettes, uncomplicated; Z88.6 Allergy status to analgesic agent; Z88.8 Allergy status to other drugs, medicaments and biological substances; Z91.018 Allergy to other foods; Z91.048 Other nonmedicinal substance allergy status; Z79.51 Long term (current) use of inhaled steroids; Z79.01 Long term (current) use of anticoagulants; Z79.891 Long term (current) use of opiate analgesic; Z79.899 Other long term (current) drug therapy; Z95.2 Presence of prosthetic heart valve; Z90.710 Acquired absence of both cervix and uterus
CPT/HCPCS: 36415; 71010; 80053; 83880; 84484; 85025; 85610; 93005; 94664; 96361; 96374; 99285; A9270; G0378; J2930; J7040; 99284

== ENCOUNTER 2018-10-26 17:37 | Emergency (ER) | payer MEDICARE, BC ==
--- NOTE | 2018-10-26 18:22 | EDM.PDOC ---
ED HPI GENERAL MEDICAL PROBLEM - General Chief Complaint: Genitourinary Problem Stated Complaint: PAIN IN LEGS, DIZZY Time Seen by Provider: 10/26/18 17:47 Source of Information: Reports: Patient History Limitations: Reports: No Limitations - History of Present Illness INITIAL COMMENTS - FREE TEXT/NARRATIVE: Presents to the emergency room reporting dizziness, tired, dry mouth, headache, nausea and a "prickly feeling" on her legs. The patient states that she had an ulcer on her left lu which was treated with clindamycin for 10 days. That has since mostly healed but she developed a vaginal yeast infection from the antibiotic one week ago. She broke out from that. Since, she has had flashes of heat down my body" and then today developed recurrent symptoms. - Related Data Allergies Allergy/AdvReac Type Severity Reaction Status Date / Time LEVI Inhibitors Allergy Other Verified 10/26/18 17:57 amitriptyline Allergy Cannot Verified 10/26/18 17:57 Remember aspirin Allergy Swelling Verified 10/26/18 17:57 atorvastatin calcium Allergy Cannot Verified 10/26/18 17:57 [From Lipitor] Remember bupropion [From Wellbutrin] Allergy Other Verified 10/26/18 17:57 chlorthalidone Allergy Cannot Verified 10/26/18 17:57 Remember diazepam [From Valium] Allergy Other Verified 10/26/18 17:57 diltiazem [From Cardizem] Allergy Other Verified 10/26/18 17:57 latex Allergy Other Verified 10/26/18 17:57 lisinopril Allergy Other Verified 10/26/18 17:57 losartan Allergy Other Verified 10/26/18 17:57 meclofenamic acid Allergy Cannot Verified 10/26/18 17:57 Remember mold Allergy Other Verified 10/26/18 17:57 nebivolol [From Bystolic] Allergy Other Verified 10/26/18 17:57 niacin Allergy Rash Verified 10/26/18 17:57 nortriptyline Allergy Other Verified 10/26/18 17:57 NSAIDS (Non-Steroidal Allergy Other Verified 10/26/18 17:57 Anti-Inflamma pregabalin [From Lyrica] Allergy Cannot Verified 10/26/18 17:57 Remember strawberry Allergy Other Verified 10/26/18 17:57 vitamin K Allergy Anaphylactic Uncoded 03/07/17 18:01 Shock Home Meds: Home Meds Budesonide/Formoterol [Symbicort 160-4.5 Mcg Inhaler] 2 puff INH BID 03/03/15 [ History] Estradiol 0.5 mg PO DAILY 03/03/15 [History] Furosemide 40 mg PO DAILY 03/03/15 [History] Nitroglycerin 6.5 mg PO BID 03/03/15 [History] Potassium Chloride 10 meq PO BID 03/03/15 [History] Verapamil HCl [Verelan] 240 mg PO BEDTIME 03/03/15 [History] Warfarin Sodium [Jantoven] 1 mg PO DAILY 03/03/15 [History] Digoxin 125 mcg PO DAILY 12/09/16 [History] Hydrocodone/Acetaminophen [Hydrocodon-Acetaminophn 10-325] 10 mg PO Q4HR PRN [History] Fish Oil/[place]-3 Fatty Acids [Fish Oil 1,000 MG] 1,000 mg PO DAILY 10/26/18 [ History] predniSONE [Prednisone] 2 tab PO DAILY #10 tablet 10/26/18 [Rx] Past Medical History Cardiovascular History: Reports: Afib, High Cholesterol, Hypertension Other Cardiovascular History: AAA Respiratory History: Reports: Asthma Other Respiratory History: COPD impression from previous visit Gastrointestinal History: Reports: Other (See Below) Other Gastrointestinal History: Abdominal Aneurysm Genitourinary History: Reports: None [employer]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 Musculoskeletal History: Degenerative disc disease, hip pain, myofascial pain syndrome, spondylolithesis of lumbar region Neurological History: Reports: None Psychiatric History: Reports: None Endocrine/Metabolic History: Reports: None Hematologic History: Reports: Other (See Below) Other Hematologic History: Factor 10 disorder Immunologic History: Reports: None Oncologic (Cancer) History: Reports: None Dermatologic History: Reports: None - Infectious Disease History Infectious Disease History: Reports: Chicken Pox, Measles, Mumps - Past Surgical History Female Surgical History: Reports: Hysterectomy Social & Family History - Family History Family Medical History: Noncontributory - Tobacco Use Smoking Status *Q: Current Every Day Smoker Years of Tobacco use: 60 Packs/Tins Daily: 0.3 - Caffeine Use Caffeine Use: Reports: Coffee - Recreational Drug Use Recreational Drug Use: No ED ROS GENERAL - Review of Systems Review Of Systems: ROS reveals no pertinent complaints other than HPI. ED EXAM, DIZZINESS - Physical Exam Exam: See Below Exam Limited By: No Limitations General Appearance: Alert, No Apparent Distress Ears: Normal External Exam, Normal TMs Nose: Normal Inspection Throat/Mouth: Normal Inspection, Normal Oropharynx Head Exam: Atraumatic, Normocephalic Neck: Normal Inspection Respiratory/Chest: No Respiratory Distress, Rhonchi (Scattered) Cardiovascular: Normal Peripheral Pulses, Regular Rate, Rhythm, Systolic Murmur GI/Abdominal: Soft, Non-Tender, No Distention Neurological: Alert, Normal Mood/Affect, No Motor/Sensory Deficits, Oriented x 3 Back Exam: Normal Inspection Extremities: Normal Inspection, Normal Range of Motion Psychiatric: Normal Affect, Normal Mood Skin Exam: Warm, Dry, Intact, Normal Color, Other (While the ischemic dermatitis shins bilateral. Scabbed dry and granulating wound left lu) Course - Vital Signs Last Recorded V/S: Last Vital Signs Temp 36.5 C 10/26/18 20:27 Pulse 85 10/26/18 20:27 Resp 18 10/26/18 20:27 BP 174/63 H 10/26/18 20:27 Pulse Ox 94 L 10/26/18 20:27 - Orders/Labs/Meds Orders: Active Orders 24 hr Category Date Time Status EKG Documentation Completion [RC] STAT Care 10/26/18 18:01 Active Labs: Laboratory Tests 10/26/18 10/26/18 Range/Units 18:30 18:30 WBC 8.06 (4.0-11.0) K/uL RBC 4.41 (4.30-5.90) M/uL Hgb 14.1 (12.0-16.0) g/dL Hct 41.2 (36.0-46.0) % MCV 93.4 (80.0-98.0) fL MCH 32.0 (27.0-32.0) pg MCHC 34.2 (31.0-37.0) g/dL RDW Std Deviation 44.0 (28.0-62.0) fl RDW Coeff of Vy 13 (11.0-15.0) % Plt Count 171 (150-400) K/uL MPV 10.50 (7.40-12.00) fL Neut % (Auto) 67.6 (48.0-80.0) % Lymph % (Auto) 22.8 (16.0-40.0) % [place] % (Auto) 7.1 (0.0-15.0) % Eos % (Auto) 2.1 (0.0-7.0) % Baso % (Auto) 0.4 (0.0-1.5) % Neut # (Auto) 5.5 (1.4-5.7) K/uL Lymph # (Auto) 1.8 (0.6-2.4) K/uL [place] # (Auto) 0.6 (0.0-0.8) K/uL Eos # (Auto) 0.2 (0.0-0.7) K/uL Baso # (Auto) 0.0 (0.0-0.1) K/uL Nucleated RBC % 0.0 /100WBC Nucleated RBCs # 0 K/uL Sodium 135 L (136-145) mmol/L Potassium 5.0 (3.5-5.1) mmol/L Chloride 99 (98-107) mmol/L Carbon Dioxide 28.7 (21.0-32.0) mmol/L BUN 30 H (7.0-18.0) mg/dL Creatinine 1.4 H (0.6-1.0) mg/dL Est Cr Clr Drug Dosing TNP Estimated GFR (MDRD) 35.7 ml/min Glucose 87 (74-106) mg/dL Calcium 10.2 H (8.5-10.1) mg/dL Total Bilirubin 0.4 (0.2-1.0) mg/dL AST 17 (15-37) IU/L ALT 16 (14-63) IU/L Alkaline Phosphatase 65 (46-116) U/L Troponin I < 0.050 (0.000-0.056) ng/mL C-Reactive Protein 1.20 H (0.00-0.90) mg/dL Total Protein 7.8 (6.4-8.2) g/dL Albumin 3.9 (3.4-5.0) g/dL Globulin 3.9 (2.6-4.0) g/dL Albumin/Globulin Ratio 1.0 (0.9-1.6) - Re-Assessments/Exams Free Text/Narrative Re-Assessment/Exam: 10/26/18 20:35 Patient states that her kidney function has been a little borderline for some time. Departure - Departure Time of Disposition: 20:37 Disposition: Home, Self-Care 01 Condition: Good Clinical Impression: Inflammation Drug reaction Qualifiers: Encounter type: initial encounter Qualified Code(s): T50.905A - Adverse effect of unspecified drugs, medicaments and biological substances, initial encounter - Discharge Information Referrals: Stephen Anders MD [Primary Care Provider] - Juan Carlos Ibrahim MD [Physician] - Forms: ED Department Discharge Additional Instructions: 1. Prednisone daily next 4 days 2. Follow up with Dr. Engel 3. Drink plenty of clear fluids - My Orders Last 24 Hours: My Active Orders 10/26/18 18:01 EKG Documentation Completion [RC] STAT - Assessment/Plan Last 24 Hours: My Active Orders 10/26/18 18:01 EKG Documentation Completion [RC] STAT
[2018-10-26 19:19] LABS: CHLORIDE,CL 99 mmol/L (98-107); SODIUM,NA 135 mmol/L (136-145)
[2018-10-26] MEDS ORDERED: predniSONE 20 MG Tab PO ONE (20:36)
[2018-10-26 20:41] VITALS: BP 166/79
== END 2018-10-26 20:49 | disposition home or self-care (01) ==
LOC: MW.ED 17:37
DX: L27.1 Localized skin eruption due to drugs and medicaments taken internally (principal); R42 Dizziness and giddiness; T36.8X5A Adverse effect of other systemic antibiotics, initial encounter; I10 Essential (primary) hypertension; I48.91 Unspecified atrial fibrillation; F17.210 Nicotine dependence, cigarettes, uncomplicated; Z90.710 Acquired absence of both cervix and uterus; Z88.6 Allergy status to analgesic agent; Z88.8 Allergy status to other drugs, medicaments and biological substances; Z91.040 Latex allergy status; Z91.018 Allergy to other foods; Z79.01 Long term (current) use of anticoagulants; Z79.899 Other long term (current) drug therapy
CPT/HCPCS: 36415; 80053; 84484; 85025; 86140; 93005; 99284; A9270

== ENCOUNTER 2020-02-03 08:54 | Emergency (ER) | payer MEDICARE, BC ==
[2020-02-03] MEDS ORDERED: Sodium Chloride 0.9% 1,000 ML IV ONE (09:10)
--- NOTE | 2020-02-03 09:21 | EDM.PDOC ---
ED HPI GENERAL MEDICAL PROBLEM - General Chief Complaint: General Stated Complaint: AMBULANCE Time Seen by Provider: 02/03/20 09:20 Source of Information: Reports: Patient History Limitations: Reports: No Limitations - History of Present Illness INITIAL COMMENTS - FREE TEXT/NARRATIVE: This 89-year-old female presents the emergency room with chief complaint of feeling weak and tingly all over. States that her INR is off because she been sipping on tonic water. Patient denies chest pain or shortness of breath or any falls. Reported that her INR is 4.9. Onset: Today Duration: Hour(s):, Getting Worse Location: Reports: Head, Face, Abdomen, Back Quality: Reports: Other (States she feels tingly all over) Severity: Moderate Improves with: Reports: None Worsens with: Reports: None Associated Symptoms: Reports: No Other Symptoms, Weakness - Related Data Allergies Allergy/AdvReac Type Severity Reaction Status Date / Time LEVI Inhibitors Allergy Other Verified 02/03/20 09:14 amitriptyline Allergy Cannot Verified 02/03/20 09:14 Remember aspirin Allergy Swelling Verified 02/03/20 09:14 atorvastatin calcium Allergy Cannot Verified 02/03/20 09:14 [From Lipitor] Remember bupropion [From Wellbutrin] Allergy Other Verified 02/03/20 09:14 chlorthalidone Allergy Cannot Verified 02/03/20 09:14 Remember diazepam [From Valium] Allergy Other Verified 02/03/20 09:14 diltiazem [From Cardizem] Allergy Other Verified 02/03/20 09:14 latex Allergy Other Verified 02/03/20 09:14 lisinopril Allergy Other Verified 02/03/20 09:14 losartan Allergy Other Verified 02/03/20 09:14 meclofenamic acid Allergy Cannot Verified 02/03/20 09:14 Remember mold Allergy Other Verified 02/03/20 09:14 nebivolol [From Bystolic] Allergy Other Verified 02/03/20 09:14 niacin Allergy Rash Verified 02/03/20 09:14 nortriptyline Allergy Other Verified 02/03/20 09:14 NSAIDS (Non-Steroidal Allergy Other Verified 02/03/20 09:14 Anti-Inflamma pregabalin [From Lyrica] Allergy Cannot Verified 02/03/20 09:14 Remember strawberry Allergy Other Verified 02/03/20 09:14 vitamin K Allergy Anaphylactic Uncoded 03/07/17 18:01 Shock Home Meds: Home Meds Budesonide/Formoterol [Symbicort 160-4.5 MCG] 1 puff INH ASDIRECTED 02/03/20 [ History] Digoxin 0.5 tab PO ASDIRECTED 02/03/20 [History] Furosemide 20 mg PO BID 02/03/20 [History] Losartan Potassium 50 mg PO ACBREAKFAST 02/03/20 [History] Montelukast Sodium 10 mg PO BEDTIME 02/03/20 [History] Nitroglycerin [Nitro-Time] 6.5 mg PO BID 02/03/20 [History] Potassium Chloride 10 mg PO BID 02/03/20 [History] cloNIDine HCL [Clonidine HCl] 0.3 mg PO BEDTIME 02/03/20 [History] estradioL [Estradiol] 0.5 mg PO ASDIRECTED 02/03/20 [History] Past Medical History Cardiovascular History: Reports: Afib, High Cholesterol, Hypertension Other Cardiovascular History: AAA Respiratory History: Reports: Asthma Other Respiratory History: COPD impression from previous visit Gastrointestinal History: Reports: Other (See Below) Other Gastrointestinal History: Abdominal Aneurysm Genitourinary History: Reports: None [employer]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 Musculoskeletal History: Degenerative disc disease, hip pain, myofascial pain syndrome, spondylolithesis of lumbar region Neurological History: Reports: None Psychiatric History: Reports: None Endocrine/Metabolic History: Reports: None Hematologic History: Reports: Other (See Below) Other Hematologic History: Factor 10 disorder Immunologic History: Reports: None Oncologic (Cancer) History: Reports: None Dermatologic History: Reports: None - Infectious Disease History Infectious Disease History: Reports: Chicken Pox, Measles, Mumps - Past Surgical History Female Surgical History: Reports: Hysterectomy Social & Family History - Family History Family Medical History: Noncontributory - Caffeine Use Caffeine Use: Reports: Coffee ED ROS GENERAL - Review of Systems Review Of Systems: See Below Constitutional: Reports: Malaise HEENT: Reports: No Symptoms Respiratory: Reports: No Symptoms Cardiovascular: Reports: No Symptoms Endocrine: Reports: No Symptoms GI/Abdominal: Reports: No Symptoms : Reports: No Symptoms Musculoskeletal: Reports: No Symptoms Skin: Reports: No Symptoms Neurological: Reports: Tingling Psychiatric: Reports: No Symptoms Hematologic/Lymphatic: Reports: No Symptoms Immunologic: Reports: No Symptoms ED EXAM, GENERAL - Physical Exam Exam: See Below Exam Limited By: No Limitations General Appearance: Alert, WD/WN, No Apparent Distress Eye Exam: Bilateral Eye: Normal Fundi, Normal Inspection Ear Exam: Bilateral Ear: Auricle Normal, Canal Normal Nose: Normal Inspection, Normal Mucosa, No Blood Throat/Mouth: Normal Inspection, Normal Lips, Normal Teeth, Normal Oropharynx, Normal Voice Head: Atraumatic, Normocephalic Neck: Normal Inspection, Supple, Non-Tender, Full Range of Motion Respiratory/Chest: No Respiratory Distress, Lungs Clear, Normal Breath Sounds, No Accessory Muscle Use, Chest Non-Tender Cardiovascular: Normal Peripheral Pulses, Regular Rate, Rhythm, No Edema, No Gallop, No JVD, No Murmur, No Rub (Female) Exam: Deferred Rectal (Female) Exam: Deferred Course - Vital Signs Text/Narrative:: This 89-year-old female presents the emergency room with chief complaint of feeling tingly. She is also concerned about her INR elevation of 4.9. Patient has no other symptoms except her tingling and warmth all over. Laboratory work revealed an INR 2.3 patient's CBC and electrolytes are normal. Has persistent tingling this with a normal CT scan of her head Will be discharged with a diagnosis of neuropathy. Patient to follow-up with primary care physician Last Recorded V/S: Last Vital Signs Temp 97.9 F 02/03/20 09:00 Pulse 69 02/03/20 10:03 Resp 18 02/03/20 10:03 BP 158/90 H 02/03/20 10:14 Pulse Ox 97 02/03/20 10:03 - Orders/Labs/Meds Orders: Active Orders 24 hr Category Date Time Status EKG Documentation Completion [RC] STAT Care 02/03/20 09:36 Active UA RFX [place] AND CULT IF INDIC [URIN] Stat Lab 02/03/20 10:24 Received Labs: Laboratory Tests 02/03/20 02/03/20 02/03/20 Range/Units 09:40 09:40 09:40 WBC 6.31 (4.0-11.0) K/uL RBC 3.59 L (4.30-5.90) M/uL Hgb 11.0 L (12.0-16.0) g/dL Hct 33.4 L (36.0-46.0) % MCV 93.0 (80.0-98.0) fL MCH 30.6 (27.0-32.0) pg MCHC 32.9 (31.0-37.0) g/dL RDW Std Deviation 48.7 (28.0-62.0) fl RDW Coeff of Vy 14 (11.0-15.0) % Plt Count 206 (150-400) K/uL MPV 10.10 (7.40-12.00) fL Neut % (Auto) 77.3 (48.0-80.0) % Lymph % (Auto) 15.5 L (16.0-40.0) % [place] % (Auto) 6.3 (0.0-15.0) % Eos % (Auto) 0.6 (0.0-7.0) % Baso % (Auto) 0.3 (0.0-1.5) % Neut # (Auto) 4.9 (1.4-5.7) K/uL Lymph # (Auto) 1.0 (0.6-2.4) K/uL [place] # (Auto) 0.4 (0.0-0.8) K/uL Eos # (Auto) 0.0 (0.0-0.7) K/uL Baso # (Auto) 0.0 (0.0-0.1) K/uL Nucleated RBC % 0.0 /100WBC Nucleated RBCs # 0 K/uL INR 2.38 Sodium 130 L (136-145) mmol/L Potassium 4.2 (3.5-5.1) mmol/L Chloride 97 L (98-107) mmol/L Carbon Dioxide 25.9 (21.0-32.0) mmol/L BUN 25 H (7.0-18.0) mg/dL Creatinine 1.1 H (0.6-1.0) mg/dL Est Cr Clr Drug Dosing 26.14 mL/min Estimated GFR (MDRD) 47.0 ml/min Glucose 101 (74-106) mg/dL Calcium 9.0 (8.5-10.1) mg/dL Total Bilirubin 0.5 (0.2-1.0) mg/dL AST 18 (15-37) IU/L ALT 17 (14-63) IU/L Alkaline Phosphatase 87 (46-116) U/L Troponin I < 0.050 (0.000-0.056) ng/mL Total Protein 7.0 (6.4-8.2) g/dL Albumin 3.3 L (3.4-5.0) g/dL Globulin 3.7 (2.6-4.0) g/dL Albumin/Globulin Ratio 0.9 (0.9-1.6) Meds: Medications Discontinued Medications Generic Name Dose Route Start Last Admin Trade Name Mariya PRN Reason Stop Dose Admin Sodium Chloride 1,000 mls @ 1,000 mls/hr 02/03/20 09:10 02/03/20 09:39 Normal Saline IV 02/03/20 10:09 1,000 mls/hr .Bolus ONE Administration Departure - Departure Time of Disposition: 10:35 Disposition: Home, Self-Care 01 Condition: Good Clinical Impression: Neuropathy, Intermittent paresthesia of hand and foot - Discharge Information Referrals: John Medellin MD [Primary Care Provider] - Forms: ED Department Discharge Additional Instructions: Patient is to follow-up with her primary care physician. She is to continue taking her medication as as needed Return for any problems Sepsis Event Note - Focused Exam Vital Signs: Vital Signs Temp Pulse Resp BP BP Pulse Ox 02/03/20 10:14 158/90 H 02/03/20 10:07 47/17 L 40/11 L 02/03/20 10:03 69 18 75/35 L 97 02/03/20 09:00 97.9 F 61 18 175/70 H 97 Date Exam was Performed: 02/03/20 Time Exam was Performed: 10:33 - My Orders Last 24 Hours: My Active Orders 02/03/20 09:36 EKG Documentation Completion [RC] STAT 02/03/20 10:24 UA RFX [place] AND CULT IF INDIC [URIN] Stat - Assessment/Plan Last 24 Hours: My Active Orders 02/03/20 09:36 EKG Documentation Completion [RC] STAT 02/03/20 10:24 UA RFX [place] AND CULT IF INDIC [URIN] Stat
--- NOTE | 2020-02-03 10:14 | CR ---
Chest: Frontal view of the chest was obtained. Comparison: Prior chest x-ray of 03/10/19. Heart size and mediastinum appear within normal limits for age. Tortuous thoracic aorta is noted. Previous sternotomy is seen. Lungs are hyperinflated most likely relating to emphysematous change. No acute parenchymal change is suspected. Bony structures show mild scoliosis within the spine. Osteopenia is also noted. Impression: 1. Probable emphysematous change. 2. Other findings believed to be stable. Nothing acute is appreciated. Diagnostic code #2 This report was dictated in MDT
--- NOTE | 2020-02-03 10:20 | CT ---
Head CT Technique: Multiple axial sections through the brain were obtained. Intravenous contrast was not utilized. Comparison: Prior head CT exam of 12/09/16. Findings: Ventricles along with basal cisterns and sulci over the convexities are moderately prominent. Calcification is noted within the right parietal white matter which is seen on prior study and appears to be stable. Minimal diminished density is noted within portions of the periventricular white matter most likely due to small vessel ischemic demyelination change. Slight vascular calcification is noted within the vertebral vessels and within the carotid siphon. No evidence of intracranial hemorrhage. No midline shift or mass-effect is seen. Bone window settings were reviewed. Mild mucosal thickening is seen within the right maxillary sinus. Mastoid sinuses that are seen appear without acute finding. No acute calvarial abnormality is seen. Impression: 1. Senescent change as noted above. Sinus findings believed to be pre-existing and chronic. 2. Nothing acute is appreciated on noncontrast head CT exam. Diagnostic code #2 This report was dictated in MDT
[2020-02-03 10:24] LABS: BLOOD UREA NITROGEN,BUN 25 mg/dL (7.0-18.0); CARBON DIOXIDE,CO2 25.9 mmol/L (21.0-32.0); CHLORIDE,CL 97 mmol/L (98-107); GLUCOSE RANDOM 101 mg/dL (74-106); POTASSIUM,K 4.2 mmol/L (3.5-5.1); SODIUM,NA 130 mmol/L (136-145)
--- NOTE | 2020-02-03 12:39 | CT ---
CT abdomen and pelvis (CT aortoiliac angiogram) Technique: Multiple axial sections were obtained from above the dome of the diaphragm inferiorly through the pubic symphysis. Intravenous contrast was utilized. Study performed as an aortogram exam. Comparison: Prior CT abdomen and pelvis study of 06/10/18. Findings: Aorta at the level of the distal thoracic level has an AP dimension of 3.0 cm. Aorta at the diaphragmatic level measures 2.5 cm in AP dimension. Mid aorta at the level of the renal arteries measures 3.0 cm. Distal aorta has an AP dimension of 4.3 cm. Diffuse atherosclerotic change is seen within the aorta. Celiac axis and superior mesenteric arteries appeared to be patent. There is moderate stenosis within the proximal left renal artery. Right renal artery appears to be patent. Inferior mesenteric artery not well seen. Diffuse atherosclerotic change with ectasia seen within the iliac arteries. No hemodynamic significant stenosis is seen. Other findings: Visualized lung bases shows emphysematous change and scarring. Artifact noted within the liver from overlying monitoring lead. No definite focal abnormality appreciated within the liver. Small hiatal hernia is noted. Spleen size is normal. Kidneys appear to show symmetric enhancement without discrete hydronephrosis or mass. Pancreas appears within normal limits. Gallbladder contains no calcified gallstones. No retroperitoneal adenopathy or mesenteric abnormalities are seen. No pelvic mass or adenopathy is seen. Appendix not visualized with certainty. Bone window settings were reviewed which shows scattered degenerative change throughout the spine. No acute osseous finding is appreciated. Impression: 1. Ectasia and diffuse aneurysmal dilatation of the abdominal aorta. Maximum aneurysm is distally with AP dimension of 4.3 cm. Diffuse atherosclerotic change is noted within the aortoiliac system. Findings within the aortoiliac arteries remain fairly stable from previous CT exam. 2. Other findings as noted above. Nothing acute is appreciated. Diagnostic code #3 This report was dictated in MDT
[2020-02-03 13:49] VITALS: BP 152/78; PULSE 82
[2020-02-03] MEDS ORDERED: Iopamidol 755 Mg/ML 100 ML Bottle IVPUSH STA (14:42)
== END 2020-02-03 13:00 | disposition home or self-care (01) ==
LOC: MW.ED 08:54
DX: G62.9 Polyneuropathy, unspecified (principal); I48.91 Unspecified atrial fibrillation; E78.00 Pure hypercholesterolemia, unspecified; I10 Essential (primary) hypertension; J44.9 Chronic obstructive pulmonary disease, unspecified; Z88.8 Allergy status to other drugs, medicaments and biological substances; Z91.040 Latex allergy status; Z91.09 Other allergy status, other than to drugs and biological substances; Z91.018 Allergy to other foods; Z88.6 Allergy status to analgesic agent; Z79.899 Other long term (current) drug therapy
CPT/HCPCS: 36415; 70450; 71045; 74174; 80053; 81003; 84484; 85025; 85610; 93005; 99285; J7030; Q9967; 99284

== ENCOUNTER 2020-09-07 08:43 | Emergency (ER) | payer MEDICARE, BC ==
--- NOTE | 2020-09-07 09:11 | EDM.PDOC ---
ED HPI GENERAL MEDICAL PROBLEM - General Stated Complaint: POSSIBLE BLOOD PRESSUREPROBLEMS Time Seen by Provider: 09/07/20 09:08 - History of Present Illness INITIAL COMMENTS - FREE TEXT/NARRATIVE: History of present illness: [] The patient is an admitted poor historian who says she cannot remember the details of her medical visits or her medication history. He started feeling terrible 6 months ago when her mounted police put her on a medicine and she swelled up with edema. She found out later that that was Cardizem which she is allergic to. He switch her to clonidine and she is on 0.3 mg clonidine daily. Is ago she began to be dizzy feel weak and short of breath. She felt fatigued and rundown. She went to the clinic and she says they did not change her medicines. Next 2 days ago she went to the clinic and she said she was on a 20 mg pill and they added another 20 mg pill. I am quite certain on the next time we reviewed her medicine she said that instead 2 days ago they took her off of a 40 mg pill. Since then she has continued to feel bad and this morning her blood pressure was extremely high. She does not have any acute new findings today. She did expect me to be able to look at the records of her mounted police from [place] from 6 months ago and her clinic the last visits 2 and 10 days ago. She expects me to make a determination of what she should do for her blood pressure control on a long- term. Yesterday in the course of this 10 days of feeling worse she noted her blood pressure was quite high and took half of her 0.3 mg clonidine pill. Her blood pressure came under control and she had a good day. She was told to see the orthotic technician who is not in today and may not be in next week since that is the [place] holiday. Staff is talking to the clinic the pharmacies and trying to assemble as much as we can to try to look at all of the medications and plans that have been made by her physicians. We will do the best we can get her through the holiday safely. 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 She also has COPD. This patient was seen and evaluated during the 2019 SARS-CoV-2 novel coronavirus pandemic period. Community viral transmission is ongoing at time of this encounter and the emergency department is operating under pandemic response procedures. Review of systems: As per history of present illness and below otherwise all systems reviewed and negative. Past medical history: As per history of present illness and as reviewed below otherwise noncontributory. Surgical history: As per history of present illness and as reviewed below otherwise noncontributory. Social history: No reported history of drug or alcohol abuse. Family history: As per history of present illness and as reviewed below otherwise noncontributory. Physical exam: Constitutional - well developed, well-nourished and in no acute distress HEENT - normocephalic, no evidence of trauma - external nose and mouth normal - no mass in neck and no JVD - mucosae moist EYES - full EOM, PERRL, no icterus - no evidence of inflammation, injection, or drainage Respiratory - no respiratory distress, equal bilateral expansion, lungs clear to auscultation and no abnormal lung sounds Cardiovascular - Regular Rhythm with S1 and S2 appreciated and no murmur, gallop or rub. GI - abdomen soft without distension or organomegaly - normal bowel sounds - no guard or rebound Musculoskeletal no gross deformity of long bones or joints - no tenderness, swelling or edema Neurologic - Alert and oriented times four - CN II-XII grossly intact - motor sensory and coordination symmetrically normal Psychiatric - appropriate mood and flat affect with normal thought content Hematologic - No petechiae or purpura - mucosa appropriate color and sclera not pale - normal nail bed color and refill Integument - no rash or evidence of trauma - normal turgor Diagnostics: [] Therapeutics: [] Impression: [] Plan: [] Definitive disposition and diagnosis as appropriate pending reevaluation and review of above. chest Pain Score (Numeric/FACES): 1 - Related Data Allergies Allergy/AdvReac Type Severity Reaction Status Date / Time LEVI Inhibitors Allergy Other Verified 09/07/20 09:19 amitriptyline Allergy Cannot Verified 09/07/20 09:19 Remember aspirin Allergy Swelling Verified 09/07/20 09:19 atorvastatin calcium Allergy Cannot Verified 09/07/20 09:19 [From Lipitor] Remember bupropion [From Wellbutrin] Allergy Other Verified 09/07/20 09:19 chlorthalidone Allergy Cannot Verified 09/07/20 09:19 Remember diazepam [From Valium] Allergy Other Verified 09/07/20 09:19 diltiazem [From Cardizem] Allergy Other Verified 09/07/20 09:19 latex Allergy Other Verified 09/07/20 09:19 lisinopril Allergy Other Verified 09/07/20 09:19 losartan Allergy Other Verified 09/07/20 09:19 meclofenamic acid Allergy Cannot Verified 09/07/20 09:19 Remember mold Allergy Other Verified 09/07/20 09:19 nebivolol [From Bystolic] Allergy Other Verified 09/07/20 09:19 niacin Allergy Rash Verified 09/07/20 09:19 nortriptyline Allergy Other Verified 09/07/20 09:19 NSAIDS (Non-Steroidal Allergy Other Verified 09/07/20 09:19 Anti-Inflamma pregabalin [From Lyrica] Allergy Cannot Verified 09/07/20 09:19 Remember strawberry Allergy Other Verified 09/07/20 09:19 vitamin K Allergy Anaphylactic Uncoded 09/07/20 09:19 Shock Home Meds: Home Meds Budesonide/Formoterol [Symbicort 160-4.5 MCG] 1 puff INH ASDIRECTED 02/03/20 [History] Digoxin 0.5 tab PO ASDIRECTED 02/03/20 [History] Furosemide 20 mg PO BID 02/03/20 [History] Losartan Potassium 50 mg PO ACBREAKFAST 02/03/20 [History] Montelukast Sodium 10 mg PO BEDTIME 02/03/20 [History] Nitroglycerin [Nitro-Time] 6.5 mg PO BID 02/03/20 [History] Potassium Chloride 10 mg PO BID 02/03/20 [History] cloNIDine HCL [Clonidine HCl] 0.3 mg PO BEDTIME 02/03/20 [History] estradioL [Estradiol] 0.5 mg PO ASDIRECTED 02/03/20 [History] cloNIDine [Catapres] 0.3 mg PO DAILY PRN #60 tab 09/07/20 [Rx] Past Medical History HEENT History: Reports: Hard of Hearing, Impaired Vision Cardiovascular History: Reports: Afib, High Cholesterol, Hypertension Other Cardiovascular History: AAA Respiratory History: Reports: Asthma Other Respiratory History: COPD impression from previous visit Gastrointestinal History: Reports: Other (See Below) Other Gastrointestinal History: Abdominal Aneurysm Genitourinary History: Reports: None Other Genitourinary History: "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" [employer] History: Reports: Musculoskeletal History: Reports: Other (See Below) Other Musculoskeletal History: Degenerative disc disease, hip pain, myofascial pain syndrome, spondylolithesis of lumbar region Neurological History: Reports: None Psychiatric History: Reports: None Endocrine/Metabolic History: Reports: None Hematologic History: Reports: Other (See Below) Other Hematologic History: Factor 10 disorder Immunologic History: Reports: None Oncologic (Cancer) History: Reports: None Dermatologic History: Reports: None - Infectious Disease History Infectious Disease History: Reports: Chicken Pox, Measles, Mumps - Past Surgical History Female Surgical History: Reports: Hysterectomy Social & Family History - Family History Family Medical History: No Pertinent Family History - Caffeine Use Caffeine Use: Reports: Coffee ED ROS GENERAL - Review of Systems Review Of Systems: Comprehensive ROS is negative, except as noted in HPI. ED EXAM, GENERAL - Physical Exam Exam: See Below Free Text/Narrative:: My physical exam is in the HPI #1 Interpretation EKG Interpretation Comments: EKG done at 9:03 AM and interpreted at 907. Atrial fibrillation with a ventricular rate of 86. QT 448 and axis 68. There are increased volts with repolarization abnormalities that represent left ventricular hypertrophy. This is compared to 02/03/2020 with no significant change. Impression atrial fibrillation with controlled ventricular response. Course - Vital Signs Text/Narrative:: 40 9 AM I have reviewed the records from [place] and the pharmacy. She did go to the clinic at the beginning of this month and at that time pressure was high and they doubled her metoprolol succinate to 50 mg daily. Is ago she said she felt worse and she wanted to stop the metoprolol so they stopped it altogether suddenly 2 days ago. 21 Review of her medicines indicates she takes oxycodone 10 mg 5 times a day long- term for her osteoarthritis. We discussed this and she says she had tried to wean to 4 times a day but just could not get through the day with the pain. There is also note that there was a one-time dose of 30 tablets of cyclobenzaprine 5 mg ordered on 22 August of this year no refills. I explained to her that if she feels tired and weak one of the things she might do is try to find alternative methods for control of her pain rather than 50 mg of oxycodone a day and cyclobenzaprine as needed. When confronted with the gradual progression of her anemia that was apparent on the last lab check she refused a Hemoccult exam and said she would rather fill out 3 cards and bring them to her next doctor appointment. Sugar came down to 160s at rest. Patient was told to expect to feel terribly well after sudden cessation of metoprolol but since it has been 2 days I chose not to restart it just for the purpose of tapering her. Patient also is advised to have her doctor explore other areas of pain control rather than 50 mg of oxycodone daily. The patient will be given 3 Hemoccult cards and told to fill them out with stool specimens and bring them back to her doctor. She will be provided extra clonidine 0.3 mg tabs so that if she checks her pres sure 2 or 3 times on the morning when she feels particularly bad and its over 180 systolic she can take an extra half a tab. Patient will be assisted in getting appointment with Dr. Reyna who will be in on 12 September from 04-25 according to our schedule. As of her anemia and INR in the upper ranges of that necessary for an artificial valve she will be told to have close follow-up by Dr. Reyna. Last Recorded V/S: Last Vital Signs Temp 35.8 C L 09/07/20 08:59 Pulse 58 L 09/07/20 09:56 Resp 13 09/07/20 09:56 BP 152/67 H 09/07/20 09:56 Pulse Ox 96 09/07/20 09:56 - Orders/Labs/Meds Orders: Active Orders 24 hr Category Date Time Status EKG 12 Lead [EKG Documentation Completion] [RC] STAT Care 09/07/20 09:13 Active B-TYPE NATRIURETIC PEPTIDE,BNP [CHEM] Stat Lab 09/07/20 09:08 Received Labs: Laboratory Tests 09/07/20 09/07/20 09/07/20 Range/Units 09:08 09:08 09:08 WBC 6.57 (4.0-11.0) K/uL RBC 3.57 L (4.30-5.90) M/uL Hgb 9.1 L (12.0-16.0) g/dL Hct 30.8 L (36.0-46.0) % MCV 86.3 (80.0-98.0) fL MCH 25.5 L (27.0-32.0) pg MCHC 29.5 L (31.0-37.0) g/dL RDW Std Deviation 53.4 (28.0-62.0) fl RDW Coeff of Vy 17 H (11.0-15.0) % Plt Count 260 (150-400) K/uL MPV 10.10 (7.40-12.00) fL Neut % (Auto) 76.5 (48.0-80.0) % Lymph % (Auto) 16.1 (16.0-40.0) % [place] % (Auto) 7.0 (0.0-15.0) % Eos % (Auto) 0.2 (0.0-7.0) % Baso % (Auto) 0.2 (0.0-1.5) % Neut # (Auto) 5.0 (1.4-5.7) K/uL Lymph # (Auto) 1.1 (0.6-2.4) K/uL [place] # (Auto) 0.5 (0.0-0.8) K/uL Eos # (Auto) 0.0 (0.0-0.7) K/uL Baso # (Auto) 0.0 (0.0-0.1) K/uL Nucleated RBC % 0.0 /100WBC Nucleated RBCs # 0 K/uL INR 3.48 Sodium 139 (136-145) mmol/L Potassium 3.9 (3.5-5.1) mmol/L Chloride 102 (98-107) mmol/L Carbon Dioxide 27.0 (21.0-32.0) mmol/L BUN 30 H (7.0-18.0) mg/dL Creatinine 1.2 H (0.6-1.0) mg/dL Est Cr Clr Drug Dosing TNP Estimated GFR (MDRD) 42.5 ml/min Glucose 119 H (74-106) mg/dL Calcium 9.9 (8.5-10.1) mg/dL Total Bilirubin 0.4 (0.2-1.0) mg/dL AST 18 (15-37) IU/L ALT 16 (14-63) IU/L Alkaline Phosphatase 68 (46-116) U/L Troponin I < 0.050 (0.000-0.056) ng/mL Total Protein 7.5 (6.4-8.2) g/dL Albumin 3.4 (3.4-5.0) g/dL Globulin 4.1 H (2.6-4.0) g/dL Albumin/Globulin Ratio 0.8 L (0.9-1.6) Urine Color Urine Appearance Urine pH (5.0-8.0) Ur Specific [place] (1.001-1.035) Urine Protein (NEGATIVE) mg/dL Urine Glucose (UA) (NEGATIVE) mg/dL Urine Ketones (NEGATIVE) mg/dL Urine Occult Blood (NEGATIVE) Urine Nitrite (NEGATIVE) Urine Bilirubin (NEGATIVE) Urine Urobilinogen (<2.0) EU/dL Ur Leukocyte Esterase (NEGATIVE) 09/07/20 Range/Units 09:40 WBC (4.0-11.0) K/uL RBC (4.30-5.90) M/uL Hgb (12.0-16.0) g/dL Hct (36.0-46.0) % MCV (80.0-98.0) fL MCH (27.0-32.0) pg MCHC (31.0-37.0) g/dL RDW Std Deviation (28.0-62.0) fl RDW Coeff of Vy (11.0-15.0) % Plt Count (150-400) K/uL MPV (7.40-12.00) fL Neut % (Auto) (48.0-80.0) % Lymph % (Auto) (16.0-40.0) % [place] % (Auto) (0.0-15.0) % Eos % (Auto) (0.0-7.0) % Baso % (Auto) (0.0-1.5) % Neut # (Auto) (1.4-5.7) K/uL Lymph # (Auto) (0.6-2.4) K/uL [place] # (Auto) (0.0-0.8) K/uL Eos # (Auto) (0.0-0.7) K/uL Baso # (Auto) (0.0-0.1) K/uL Nucleated RBC % /100WBC Nucleated RBCs # K/uL INR Sodium (136-145) mmol/L Potassium (3.5-5.1) mmol/L Chloride (98-107) mmol/L Carbon Dioxide (21.0-32.0) mmol/L BUN (7.0-18.0) mg/dL Creatinine (0.6-1.0) mg/dL Est Cr Clr Drug Dosing Estimated GFR (MDRD) ml/min Glucose (74-106) mg/dL Calcium (8.5-10.1) mg/dL Total Bilirubin (0.2-1.0) mg/dL AST (15-37) IU/L ALT (14-63) IU/L Alkaline Phosphatase (46-116) U/L Troponin I (0.000-0.056) ng/mL Total Protein (6.4-8.2) g/dL Albumin (3.4-5.0) g/dL Globulin (2.6-4.0) g/dL Albumin/Globulin Ratio (0.9-1.6) Urine Color YELLOW Urine Appearance CLEAR Urine pH 6.5 (5.0-8.0) Ur Specific [place] 1.015 (1.001-1.035) Urine Protein NEGATIVE (NEGATIVE) mg/dL Urine Glucose (UA) NEGATIVE (NEGATIVE) mg/dL Urine Ketones NEGATIVE (NEGATIVE) mg/dL Urine Occult Blood NEGATIVE (NEGATIVE) Urine Nitrite NEGATIVE (NEGATIVE) Urine Bilirubin NEGATIVE (NEGATIVE) Urine Urobilinogen 0.2 (<2.0) EU/dL Ur Leukocyte Esterase NEGATIVE (NEGATIVE) Departure - Departure Time of Disposition: 10:43 Disposition: Home, Self-Care 01 Condition: Good Clinical Impression: Weakness, Hypertension, Chronic pain, Anemia - Discharge Information Instructions: Pain Medicine Instructions, Weakness Referrals: John Medellin MD [Primary Care Provider] - Juan Carlos Ibrahim MD [Physician] - Additional Instructions: Your blood count is low. Please apply a small part of your stool specimen the next 3 times ago to the cards and bring them to your doctor. If you take your blood pressure and you have symptoms and it is over 180 systolic after you have rested in the morning you may take another half of your 0.3 mg clonidine tablet. [facility] - cardiology [address] [place] [id number] The following information is given to patients seen in the emergency department who are being discharged to home. This information is to outline your options for follow-up care. We provide all patients seen in our emergency department with a follow-up referral. The need for follow-up, as well as the timing and circumstances, are variable depending upon the specifics of your emergency department visit. If you don't have a primary care physician on staff, we will provide you with a referral. We always advise you to contact your personal physician following an emergency department visit to inform them of the circumstance of the visit and for follow-up with them and/or the need for any referrals to a consulting specialist. The emergency department will also refer you to a specialist when appropriate. This referral assures that you have the opportunity for follow-up care with a specialist. All of these measure are taken in an effort to provide you with optimal care, which includes your follow-up. Under all circumstances we always encourage you to contact your private physician who remains a resource for coordinating your care. When calling for follow-up care, please make the office aware that this follow-up is from your recent emergency room visit. If for any reason you are refused follow-up, please contact the [facility] Emergency Department at and asked to speak to the emergency department charge nurse. Sepsis Event Note (ED) - Focused Exam Vital Signs: Vital Signs Temp Pulse Resp BP Pulse Ox 09/07/20 09:56 58 L 13 152/67 H 96 09/07/20 09:47 85 21 H 171/102 H 98 09/07/20 09:26 84 15 174/93 H 98 09/07/20 09:11 87 14 180/89 H 97 09/07/20 08:59 35.8 C L 88 19 214/97 H 98 - My Orders Last 24 Hours: My Active Orders 09/07/20 09:08 B-TYPE NATRIURETIC PEPTIDE,BNP [CHEM] Stat 09/07/20 09:13 EKG 12 Lead [EKG Documentation Completion] [RC] STAT - Assessment/Plan Last 24 Hours: My Active Orders 09/07/20 09:08 B-TYPE NATRIURETIC PEPTIDE,BNP [CHEM] Stat 09/07/20 09:13 EKG 12 Lead [EKG Documentation Completion] [RC] STAT
[2020-09-07 10:12] LABS: BLOOD UREA NITROGEN,BUN 30 mg/dL (7.0-18.0); CHLORIDE,CL 102 mmol/L (98-107); GLUCOSE RANDOM 119 mg/dL (74-106); POTASSIUM,K 3.9 mmol/L (3.5-5.1); SODIUM,NA 139 mmol/L (136-145)
[2020-09-07 15:02] VITALS: BP 153/67; PULSE 59
== END 2020-09-07 11:08 | disposition home or self-care (01) ==
LOC: MW.ED 08:43
DX: I10 Essential (primary) hypertension (principal); R53.1 Weakness; R07.9 Chest pain, unspecified; D64.9 Anemia, unspecified; I48.91 Unspecified atrial fibrillation; J44.9 Chronic obstructive pulmonary disease, unspecified; Z88.8 Allergy status to other drugs, medicaments and biological substances; Z91.040 Latex allergy status; Z91.048 Other nonmedicinal substance allergy status; Z88.6 Allergy status to analgesic agent; Z91.018 Allergy to other foods; Z79.899 Other long term (current) drug therapy
CPT/HCPCS: 36415; 80053; 81003; 83880; 84484; 85025; 85610; 93005; 93010; 99284; 99284-25